=== PATIENT | male | born 1960 | race African-American/Black ===

== ENCOUNTER 2019-12-23 18:26 | Inpatient (IN) | payer MEDICAID, OTHER ==
[~2019-12-23] VITALS: Ht 167.6 cm; Wt 78.9 kg
[~2019-12-23 18:26] MED LIST: DOCUSATE; HYDROCODONE; METOPROLOL; WARFARIN
[2019-12-23] MEDS ORDERED: ONDANSETRON HCL 4MG/2ML INJ IV STA (20:07)
[2019-12-23 20:36] LABS: EOSINOPHILS % 0.8 % (0.0-5.0); HEMATOCRIT. 41.8 % (42.0-52.0); LYMPHOCYTES % 24.7 % (20.0-50.0); MEAN CORPUSCULAR HEMOGLOBIN 28.5 pg (28.0-32.0); MEAN CORPUSCULAR VOLUME 85.2 fL (80.0-94.0); MEAN PLATELET VOLUME 8.2 fl (7.4-10.4); MONOCYTES % 13.4 % (2.0-8.0); NEUTROPHILS % 60.1 % (40.0-76.0); PLATELET 158 x1000/uL (130-400); RED BLOOD CELL COUNT 4.91 mill/uL (4.7-6.1); RED CELL DISTRIBUTION WIDTH 13.5 % (11.6-14.6)
[2019-12-23 20:38] LABS: CHLORIDE 108 mEq/L (98-107)
[2019-12-23 20:43] LABS: ETHANOL BLOOD < 10 mg/dL
[2019-12-23 20:44] LABS: D-DIMER 0.68 mg/L FEU (<0.50); PARTIAL THROMBOPLASTIN TIME 24.7 sec (23.4-31.0); PROTHROMBIN TIME 9.8 sec (9.6-11.0)
[2019-12-23 20:46] LABS: LDL CHOLESTEROL 100 mg/dL (5-100)
[2019-12-23 20:47] LABS: CREATINE KINASE 267 IU/L (39-308)
[2019-12-23] MEDS ORDERED: HYDRALAZINE 20MG/ML VIAL IV ONE (21:15)
[2019-12-23 21:57] LABS: CLARITY URINE CLEAR (CLEAR); COLOR URINE YELLOW (YELLOW); KETONES URINE NEGATIVE (NEGATIVE); LEUKOCYTE ESTERASE URINE NEGATIVE (NEGATIVE); NITRITE URINE NEGATIVE (NEGATIVE); OCCULT BLOOD URINE NEGATIVE (NEGATIVE); PROTEIN URINE NEGATIVE (NEGATIVE); SPECIFIC GRAVITY URINE 1.015 (1.005-1.030); UROBILINOGEN URINE 0.2 E.U./dL (0.2-1.0)
[2019-12-23] MEDS ORDERED: IOHEXOL-350 100 ML BOTTLE ONE (22:10)
[2019-12-23] MEDS ORDERED: ATORVASTATIN CALCIUM 40MG TABLET PO SCH (22:15)
[2019-12-23 22:24] LABS: *AMPHETAMINES SCREEN URINE NEGATIVE (NEGATIVE); *BARBITURATES SCREEN URINE NEGATIVE (NEGATIVE); CANNABINOID URINE SCREEN NEGATIVE (NEGATIVE)
[2019-12-23 22:25] LABS: *BENZODIAZEPINES SCREEN URINE NEGATIVE (NEGATIVE); *COCAINE SCREEN URINE NEGATIVE (NEGATIVE); METHADONE URINE SCREEN NEGATIVE (NEGATIVE); OPIATES URINE SCREEN NEGATIVE (NEGATIVE); PHENCYCLIDINE URINE SCREEN NEGATIVE (NEGATIVE)
[2019-12-23] MEDS ORDERED: ONDANSETRON HCL 4MG/2ML INJ IV ONE (23:45)
[2019-12-23] MEDS ORDERED: MORPHINE SULFATE 4 MG/ML CPJ (NOT FOR IM USE) IV ONE (23:45)
[2019-12-24] MEDS ORDERED: ENOXAPARIN 80MG/0.8ML SYR SUBCUT ONE (01:00)
[2019-12-24] MEDS ORDERED: CLONIDINE 0.2MG TABLET PO ONE (01:00)
[2019-12-24] MEDS ORDERED: MORPHINE SULFATE 4 MG/ML CPJ (NOT FOR IM USE) IV ONE (05:15)
[2019-12-24 11:47] VITALS: BP 121/79
[2019-12-24 12:00] VITALS: BP 121/79
[2019-12-24] MEDS: HYDROCODONE/ACETAMINOPHEN 5/325MG TABLET PO PRN ×2 (15:39→20:54)
[2019-12-24 16:00] VITALS: BP 125/81
[2019-12-24] MEDS: ENOXAPARIN 80MG/0.8ML SYR SUBCUT SCH (17:40)
[2019-12-24 20:00] VITALS: BP 115/80
[2019-12-24] MEDS: AMLODIPINE 5MG TABLET PO SCH (20:55)
[2019-12-24] MEDS ORDERED: ATORVASTATIN CALCIUM 40MG TABLET PO SCH (21:00)
[2019-12-25] VITALS: BP 127/83
[2019-12-25 04:00] VITALS: BP 117/84
[2019-12-25] MEDS: ENOXAPARIN 80MG/0.8ML SYR SUBCUT SCH (05:46)
[2019-12-25] MEDS: HYDROCODONE/ACETAMINOPHEN 5/325MG TABLET PO PRN (05:47)
[2019-12-25 06:30] LABS: EOSINOPHILS % 1.7 % (0.0-5.0); HEMATOCRIT. 41.8 % (42.0-52.0); HEMOGLOBIN. 13.9 g/dL (14.0-18.0); LYMPHOCYTES % 21.7 % (20.0-50.0); MEAN CORPUSCULAR HEMOGLOBIN 28.4 pg (28.0-32.0); MEAN CORPUSCULAR VOLUME 85.9 fL (80.0-94.0); MEAN PLATELET VOLUME 8.5 fl (7.4-10.4); NEUTROPHILS % 62.1 % (40.0-76.0); PLATELET 152 x1000/uL (130-400); RED BLOOD CELL COUNT 4.87 mill/uL (4.7-6.1); RED CELL DISTRIBUTION WIDTH 13.3 % (11.6-14.6)
[2019-12-25 06:31] LABS: BASOPHILS % 0.5 % (0.0-2.0)
[2019-12-25 07:30] LABS: CHLORIDE 106 mEq/L (98-107)
[2019-12-25 08:00] VITALS: BP 119/80
[2019-12-25] MEDS: AMLODIPINE 5MG TABLET PO SCH (08:46)
[2019-12-25] MEDS ORDERED: ENOXAPARIN 40MG/0.4ML SYR SUBCUT SCH (09:00)
[2019-12-25 12:00] VITALS: BP 129/88
[2019-12-25 15:24] VITALS: BP 135/86
[2019-12-25 16:00] VITALS: BP 135/86
== END 2019-12-25 18:30 | disposition home or self-care (01) | DRG 48 ==
LOC: ER 18:26 → 5WST 18:27 → UNDOADMIN 18:27 → 5WST 22:08 → EDBEDREQSVC 22:13 → EDBEDREQ 22:13 → ENRESERV 12-24 07:42 → 5WST 12-24 11:18
PROVIDERS: ADMIT Internal Medicine; ATTEND Internal Medicine
DX: G90.8 Other disorders of autonomic nervous system (principal); I82.411 Acute embolism and thrombosis of right femoral vein; E87.8 Other disorders of electrolyte and fluid balance, not elsewhere classified; E78.5 Hyperlipidemia, unspecified; F17.210 Nicotine dependence, cigarettes, uncomplicated; I10 Essential (primary) hypertension; Z82.3 Family history of stroke; Z71.6 Tobacco abuse counseling; Z79.899 Other long term (current) drug therapy; Z79.01 Long term (current) use of anticoagulants
CPT/HCPCS: 36415; 70496; 70551; 71045; 80048; 80053; 80061; 80305; 80320; 81003; 82550; 82962; 83721; 83880; 84443; 84484; 85025; 85379; 92610; 93005; 93970; 96372; 96374; 96375; 96376; 97162; 97166; 97535; 99285; J0360; J1650; J2270; J2405; Q9967; G0480

== ENCOUNTER 2020-01-06 00:19 | Inpatient (IN) | payer MEDICAID, OTHER ==
[~2020-01-06] VITALS: Ht 165.1 cm; Wt 87.1 kg
[~2020-01-06 00:19] MED LIST changes: -METOPROLOL
[2020-01-06 02:07] LABS: HEMATOCRIT. 41.5 % (42.0-52.0); HEMOGLOBIN. 14.1 g/dL (14.0-18.0); MEAN CORPUSCULAR HEMOGLOBIN 28.8 pg (28.0-32.0); MEAN CORPUSCULAR VOLUME 84.9 fL (80.0-94.0); MEAN PLATELET VOLUME 7.8 fl (7.4-10.4); PLATELET 192 x1000/uL (130-400); RED BLOOD CELL COUNT 4.89 mill/uL (4.7-6.1); RED CELL DISTRIBUTION WIDTH 13.4 % (11.6-14.6)
[2020-01-06 02:12] LABS: CHLORIDE 105 mEq/L (98-107)
[2020-01-06 02:14] LABS: PARTIAL THROMBOPLASTIN TIME 26.5 sec (23.4-31.0); PROTHROMBIN TIME 10.1 sec (9.6-11.0)
[2020-01-06] MEDS ORDERED: ENOXAPARIN 80MG/0.8ML SYR SUBCUT ONE (03:00)
[2020-01-06] MEDS ORDERED: MORPHINE SULFATE 4 MG/ML CPJ (NOT FOR IM USE) IV ONE (03:30)
[2020-01-06] MEDS ORDERED: ONDANSETRON HCL 4MG/2ML INJ IV ONE (03:30)
[2020-01-06] MEDS ORDERED: HYDROCHLOROTHIAZIDE 25MG TABLET PO ONE (03:45)
[2020-01-06 04:32] LABS: CLARITY URINE CLEAR (CLEAR); COLOR URINE YELLOW (YELLOW); KETONES URINE NEGATIVE (NEGATIVE); LEUKOCYTE ESTERASE URINE NEGATIVE (NEGATIVE); NITRITE URINE NEGATIVE (NEGATIVE); OCCULT BLOOD URINE NEGATIVE (NEGATIVE); PH URINE 5.5 (4.5-8.0); PROTEIN URINE NEGATIVE (NEGATIVE); SPECIFIC GRAVITY URINE 1.015 (1.005-1.030); UROBILINOGEN URINE 0.2 E.U./dL (0.2-1.0)
[2020-01-06] MEDS ORDERED: MAGNESIUM/ALUMINUM HYDROXIDE/SIMETHICONE 30ML UDC PO ONE (05:00)
[2020-01-06] MEDS ORDERED: FAMOTIDINE 20MG/2ML VIAL IV ONE (05:00)
[2020-01-06 05:09] LABS: PLATELET ESTIMATE NORMAL
[2020-01-06] MEDS ORDERED: ACETAMINOPHEN 325MG TABLET PO PRN (07:45)
[2020-01-06] MEDS ORDERED: MAGNESIUM/ALUMINUM HYDROXIDE/SIMETHICONE 30ML UDC PO PRN (07:45)
[2020-01-06] MEDS ORDERED: DOCUSATE SODIUM 100MG CAPSULE PO PRN (07:45)
[2020-01-06] MEDS ORDERED: LORAZEPAM 2MG/ML CPJ IV PRN (07:45)
[2020-01-06] MEDS ORDERED: GUAIFENESIN 200MG/10ML SUGAR FREE UDC PO PRN (07:45)
[2020-01-06] MEDS ORDERED: CLONIDINE 0.1MG TABLET PO PRN (07:45)
[2020-01-06] MEDS ORDERED: IPRATROPIUM/ALBUTEROL 0.5-3(2.5)MG/3ML NEB HHN PRN (07:45)
[2020-01-06] MEDS ORDERED: ONDANSETRON HCL 4MG/2ML INJ IV PRN (07:45)
[2020-01-06] MEDS ORDERED: DIPHENHYDRAMINE 50MG/ML VIAL IV PRN (07:45)
[2020-01-06] MEDS ORDERED: NA PHOS,M-B/NA PHOS,DI-BA ENEMA 118ML PR PRN (07:45)
[2020-01-06] MEDS ORDERED: MORPHINE SULFATE 2 MG/ML CPJ (NOT FOR IM USE) IV PRN (07:45)
[2020-01-06 08:00] VITALS: BP 174/113
[2020-01-06] MEDS: HYDROCODONE/ACETAMINOPHEN 5/325MG TABLET PO PRN ×2 (08:06→17:34)
[2020-01-06 08:15] VITALS: BP 146/95
[2020-01-06] MEDS ORDERED: LISI30TA36 MT (09:59)
[2020-01-06] MEDS ORDERED: APIX5TAB MT (09:59)
[2020-01-06 12:00] VITALS: BP 170/100
[2020-01-06 15:02] LABS: CHLORIDE 101 mEq/L (98-107)
[2020-01-06 16:00] VITALS: BP 103/103
[2020-01-06] MEDS: ENOXAPARIN 80MG/0.8ML SYR SUBCUT SCH (17:33)
[2020-01-06 20:00] VITALS: BP 125/84
[2020-01-06] MEDS: LISINOPRIL 20MG TABLET PO SCH (21:29)
[2020-01-07] VITALS: BP 133/90
[2020-01-07 04:00] VITALS: BP 138/100
[2020-01-07] MEDS: ENOXAPARIN 80MG/0.8ML SYR SUBCUT SCH ×2 (04:16→17:17)
[2020-01-07 07:07] LABS: BASOPHILS % 0.7 % (0.0-2.0); EOSINOPHILS % 1.6 % (0.0-5.0); HEMOGLOBIN. 14.5 g/dL (14.0-18.0); LYMPHOCYTES % 20.2 % (20.0-50.0); MEAN CORPUSCULAR HEMOGLOBIN 28.1 pg (28.0-32.0); MEAN CORPUSCULAR VOLUME 85.5 fL (80.0-94.0); MEAN PLATELET VOLUME 8.4 fl (7.4-10.4); NEUTROPHILS % 63.5 % (40.0-76.0); PLATELET 194 x1000/uL (130-400); RED BLOOD CELL COUNT 5.15 mill/uL (4.7-6.1); RED CELL DISTRIBUTION WIDTH 13.2 % (11.6-14.6)
[2020-01-07 08:00] VITALS: BP 110/83
[2020-01-07] MEDS: HYDROCODONE/ACETAMINOPHEN 5/325MG TABLET PO PRN ×2 (08:08→14:20)
[2020-01-07 08:20] LABS: CHLORIDE 101 mEq/L (98-107)
[2020-01-07 08:33] LABS: LDL CHOLESTEROL 63 mg/dL (5-100)
[2020-01-07 08:34] LABS: CREATINE KINASE 162 IU/L (39-308)
[2020-01-07 08:36] LABS: HDL CHOLESTEROL 68 mg/dL (40-59); T4 FREE 1.02 ng/dL (0.76-1.46)
[2020-01-07] MEDS: LISINOPRIL 20MG TABLET PO SCH (08:36)
[2020-01-07 12:00] VITALS: BP 139/95
[2020-01-07 16:00] VITALS: BP_SYST 123; BP_SYST 96; BP_DIAS 62; BP_DIAS 89
[2020-01-07 20:00] VITALS: BP 116/81
[2020-01-08] VITALS: BP 114/77
[2020-01-08] MEDS: HYDROCODONE/ACETAMINOPHEN 5/325MG TABLET PO PRN (01:23)
[2020-01-08 04:00] VITALS: BP 115/81
[2020-01-08] MEDS: ENOXAPARIN 80MG/0.8ML SYR SUBCUT SCH (04:48)
[2020-01-08 08:00] VITALS: BP 108/79
[2020-01-08] MEDS: LISINOPRIL 20MG TABLET PO SCH (09:04)
[2020-01-08 10:41] VITALS: BP 108/79
[2020-01-08 12:00] VITALS: BP 124/95
[2020-01-15] MEDS ORDERED: APIX5TAB MT (12:37)
[2020-04-17] MEDS ORDERED: AMLO10TA80 PO (13:41)
== END 2020-01-08 14:47 | disposition home or self-care (01) | DRG 197 ==
LOC: ER 00:19 → 6EST 03:21 → EDBEDREQTM 03:24 → EDBEDREQSVC 03:24 → EDBEDREQ 03:24 → ENRESERV 07:48
PROVIDERS: ADMIT Internal Medicine; ATTEND Internal Medicine
DX: I82.401 Acute embolism and thrombosis of unspecified deep veins of right lower extremity (principal); I10 Essential (primary) hypertension; R29.6 Repeated falls; Z86.718 Personal history of other venous thrombosis and embolism; Z91.14 Patient's other noncompliance with medication regimen; Z86.73 Personal history of transient ischemic attack (TIA), and cerebral infarction without residual deficits; Z79.899 Other long term (current) drug therapy; Z79.01 Long term (current) use of anticoagulants
CPT/HCPCS: 36415; 71045; 73590; 80048; 80053; 80061; 81003; 82550; 82553; 83036; 83880; 84439; 84443; 84484; 85025; 85379; 93005; 93306; 93970; 99285; J1650; J2270; J2405; J3490

== ENCOUNTER 2020-01-13 23:57 | Inpatient (IN) | payer MEDICAID, OTHER ==
[~2020-01-13] VITALS: Ht 167.6 cm; Wt 81.6 kg
[~2020-01-13 23:57] MED LIST changes: +APIX5TAB MT; +LISI30TA36 MT
[2020-01-14 08:22] LABS: BASOPHILS % 0.8 % (0.0-2.0); EOSINOPHILS % 0.6 % (0.0-5.0); HEMATOCRIT. 40.5 % (42.0-52.0); HEMOGLOBIN. 13.6 g/dL (14.0-18.0); LYMPHOCYTES % 18.6 % (20.0-50.0); MEAN CORPUSCULAR HEMOGLOBIN 28.7 pg (28.0-32.0); MEAN CORPUSCULAR VOLUME 85.2 fL (80.0-94.0); MEAN PLATELET VOLUME 7.9 fl (7.4-10.4); MONOCYTES % 11.6 % (2.0-8.0); NEUTROPHILS % 68.4 % (40.0-76.0); PLATELET 159 x1000/uL (130-400); RED BLOOD CELL COUNT 4.75 mill/uL (4.7-6.1); RED CELL DISTRIBUTION WIDTH 13.4 % (11.6-14.6)
[2020-01-14 08:27] LABS: CHLORIDE 108 mEq/L (98-107)
[2020-01-14] MEDS ORDERED: HYDRALAZINE 20MG/ML VIAL IV ONE (10:00)
[2020-01-14] MEDS ORDERED: ASPIRIN 325MG EC TABLET PO ONE (10:15)
[2020-01-14] MEDS ORDERED: NITROGLYCERIN 0.4MG TABLET SL SL PRN (11:30)
[2020-01-14] MEDS ORDERED: HYDRALAZINE 20MG/ML VIAL IV PRN (11:30)
[2020-01-14] MEDS ORDERED: ONDANSETRON HCL 4MG/2ML INJ IV PRN (11:30)
[2020-01-14] MEDS ORDERED: ACETAMINOPHEN 325MG TABLET PO PRN (11:30)
[2020-01-14] MEDS: AMLODIPINE 5MG TABLET PO SCH (12:30)
[2020-01-14] MEDS ORDERED: ATORVASTATIN CALCIUM 40MG TABLET PO NR (12:31)
[2020-01-14] MEDS: APIXABAN 5 MG TABLET PO SCH (12:35)
[2020-01-14] MEDS ORDERED: IOHEXOL-350 100 ML BOTTLE ONE (12:53)
[2020-01-14 20:20] VITALS: BP 156/108
[2020-01-14 20:30] VITALS: BP 156/108
[2020-01-14] MEDS: CLONIDINE 0.1MG TABLET PO PRN (20:50)
[2020-01-14] MEDS ORDERED: HEPARIN 5000 UNITS/ML VIAL SUBCUT SCH (21:00)
[2020-01-14 21:40] VITALS: BP 136/92
[2020-01-14] MEDS ORDERED: HYDROCODONE/ACETAMINOPHEN 5/325MG TABLET PO PRN (22:30)
[2020-01-14] MEDS ORDERED: TRAMADOL 50MG TABLET PO PRN (22:30)
[2020-01-15] VITALS: BP 112/80
[2020-01-15 04:00] VITALS: BP 126/90
[2020-01-15 07:10] LABS: BASOPHILS % 0.7 % (0.0-2.0); EOSINOPHILS % 1.2 % (0.0-5.0); HEMATOCRIT. 40.2 % (42.0-52.0); HEMOGLOBIN. 13.6 g/dL (14.0-18.0); LYMPHOCYTES % 20.1 % (20.0-50.0); MEAN CORPUSCULAR HEMOGLOBIN 28.7 pg (28.0-32.0); MEAN CORPUSCULAR VOLUME 85.1 fL (80.0-94.0); MEAN PLATELET VOLUME 8.4 fl (7.4-10.4); MONOCYTES % 13.2 % (2.0-8.0); NEUTROPHILS % 64.8 % (40.0-76.0); PLATELET 149 x1000/uL (130-400); RED BLOOD CELL COUNT 4.72 mill/uL (4.7-6.1); RED CELL DISTRIBUTION WIDTH 13.1 % (11.6-14.6)
[2020-01-15 07:23] LABS: CHLORIDE 107 mEq/L (98-107)
[2020-01-15 07:36] LABS: LDL CHOLESTEROL 83 mg/dL (5-100)
[2020-01-15 07:38] LABS: TOTAL IRON BINDING CAPACITY 232 ug/dL (250-450)
[2020-01-15 07:39] LABS: HDL CHOLESTEROL 65 mg/dL (40-59)
[2020-01-15 07:43] LABS: VITAMIN B12 SERUM 274 pg/mL (211-911)
[2020-01-15 08:00] VITALS: BP 151/99
[2020-01-15] MEDS: APIXABAN 5 MG TABLET PO SCH ×2 (09:22→17:39)
[2020-01-15] MEDS: AMLODIPINE 5MG TABLET PO SCH (09:22)
[2020-01-15 12:00] VITALS: BP 126/75
[2020-01-15] MEDS ORDERED: APIX5TAB MT (12:37)
[2020-01-15 16:00] VITALS: BP 135/94
[2020-01-15 16:28] LABS: METHADONE URINE SCREEN NEGATIVE (NEGATIVE)
[2020-01-15 16:29] LABS: OPIATES URINE SCREEN PRESUMTIVE POSITIVE (NEGATIVE); PHENCYCLIDINE URINE SCREEN NEGATIVE (NEGATIVE)
[2020-01-15 16:30] VITALS: BP 135/94
[2020-01-15 16:30] LABS: *AMPHETAMINES SCREEN URINE NEGATIVE (NEGATIVE); *BARBITURATES SCREEN URINE NEGATIVE (NEGATIVE); *BENZODIAZEPINES SCREEN URINE NEGATIVE (NEGATIVE); *COCAINE SCREEN URINE NEGATIVE (NEGATIVE); CANNABINOID URINE SCREEN NEGATIVE (NEGATIVE)
[2020-01-15] MEDS: CLONIDINE 0.1MG TABLET PO PRN (18:34)
== END 2020-01-15 18:40 | disposition home or self-care (01) | DRG 145 ==
LOC: ER 23:57 → UNDOADMIN 01-14 06:54 → 6EST 01-14 06:54 → ENRESERV 01-14 18:08 → EDBEDREQ 01-14 19:49 → 5WST 01-14 20:22
PROVIDERS: ADMIT Internal Medicine; ATTEND Internal Medicine
DX: R07.81 Pleurodynia (principal); D72.821 Monocytosis (symptomatic); I10 Essential (primary) hypertension; I16.0 Hypertensive urgency; R94.6 Abnormal results of thyroid function studies; R07.89 Other chest pain; R91.8 Other nonspecific abnormal finding of lung field; R09.1 Pleurisy; Z86.718 Personal history of other venous thrombosis and embolism; Z86.73 Personal history of transient ischemic attack (TIA), and cerebral infarction without residual deficits; Z79.01 Long term (current) use of anticoagulants; Z88.6 Allergy status to analgesic agent
CPT/HCPCS: 36415; 71045; 71275; 78582; 80053; 80061; 80305; 82607; 83036; 83540; 83550; 83735; 83880; 84443; 84484; 85025; 87804; 93005; 93971; 96372; 99285; A9558; J0360; Q9967

== ENCOUNTER 2020-03-22 08:42 | Emergency (ER) | payer MEDICAID ==
[~2020-03-22] VITALS: Ht 165.1 cm; Wt 69.0 kg
[~2020-03-22 08:42] MED LIST changes: -WARFARIN
[2020-03-22 08:48] VITALS: BP 116/76
[2020-04-17] MEDS ORDERED: AMLO10TA80 PO (13:41)
== END 2020-03-22 10:08 | disposition home or self-care (01) ==
LOC: ER 08:42
DX: I82.4Z9 Acute embolism and thrombosis of unspecified deep veins of unspecified distal lower extremity (principal); Z76.0 Encounter for issue of repeat prescription; I10 Essential (primary) hypertension
CPT/HCPCS: 99282

== ENCOUNTER 2020-04-14 20:09 | Inpatient (IN) | payer MEDICAID ==
[~2020-04-14] VITALS: Ht 172.7 cm; Wt 67.6 kg
[2020-04-14 21:12] LABS: BASOPHILS % 0.7 % (0.0-2.0); EOSINOPHILS % 0.8 % (0.0-5.0); HEMATOCRIT. 38.9 % (42.0-52.0); LYMPHOCYTES % 20.8 % (20.0-50.0); MEAN CORPUSCULAR HEMOGLOBIN 28.7 pg (28.0-32.0); MEAN CORPUSCULAR VOLUME 85.4 fL (80.0-94.0); MEAN PLATELET VOLUME 8.1 fl (7.4-10.4); MONOCYTES % 12.9 % (2.0-8.0); NEUTROPHILS % 64.8 % (40.0-76.0); PLATELET 140 x1000/uL (130-400); RED BLOOD CELL COUNT 4.55 mill/uL (4.7-6.1)
[2020-04-14 21:14] LABS: CHLORIDE 110 mEq/L (98-107)
[2020-04-14] MEDS ORDERED: CEFTRIAXONE 1 G PREMIX 50 ML IV NR (22:30)
[2020-04-14] MEDS ORDERED: AZITHROMYCIN 500 MG in DEXT 5% WATER 250 ML IV SCH (22:30)
[2020-04-14] MEDS ORDERED: NITROGLYCERIN 0.4MG TABLET SL SL PRN (22:45)
[2020-04-14] MEDS ORDERED: ONDANSETRON HCL 4MG/2ML INJ IV PRN (22:45)
[2020-04-14] MEDS ORDERED: ATORVASTATIN CALCIUM 40MG TABLET PO NR (22:45)
[2020-04-14] MEDS ORDERED: AMLODIPINE 10MG TABLET PO SCH (23:00)
[2020-04-15 00:05] LABS: *AMPHETAMINES SCREEN URINE NEGATIVE (NEGATIVE); *BARBITURATES SCREEN URINE NEGATIVE (NEGATIVE); *BENZODIAZEPINES SCREEN URINE NEGATIVE (NEGATIVE); *COCAINE SCREEN URINE NEGATIVE (NEGATIVE); METHADONE URINE SCREEN NEGATIVE (NEGATIVE); OPIATES URINE SCREEN NEGATIVE (NEGATIVE)
[2020-04-15 00:06] LABS: CANNABINOID URINE SCREEN NEGATIVE (NEGATIVE); PHENCYCLIDINE URINE SCREEN NEGATIVE (NEGATIVE)
[2020-04-15] MEDS: ACETAMINOPHEN 325MG TABLET PO PRN ×3 (01:19→16:23)
[2020-04-15] MEDS: CLONIDINE 0.1MG TABLET PO PRN ×2 (01:19→16:23)
[2020-04-15 09:22] LABS: CHLORIDE 104 mEq/L (98-107)
[2020-04-15 09:28] LABS: BASOPHILS % 0.3 % (0.0-2.0); EOSINOPHILS % 0.8 % (0.0-5.0); HEMATOCRIT. 40.8 % (42.0-52.0); HEMOGLOBIN. 13.8 g/dL (14.0-18.0); LYMPHOCYTES % 14.1 % (20.0-50.0); MEAN CORPUSCULAR HEMOGLOBIN 28.7 pg (28.0-32.0); MEAN CORPUSCULAR VOLUME 85.2 fL (80.0-94.0); MEAN PLATELET VOLUME 8.1 fl (7.4-10.4); MONOCYTES % 12.2 % (2.0-8.0); NEUTROPHILS % 72.6 % (40.0-76.0); PLATELET 139 x1000/uL (130-400); RED BLOOD CELL COUNT 4.79 mill/uL (4.7-6.1); RED CELL DISTRIBUTION WIDTH 14.7 % (11.6-14.6)
[2020-04-15 09:31] LABS: LDL CHOLESTEROL 82 mg/dL (5-100)
[2020-04-15 09:32] LABS: HDL CHOLESTEROL 80 mg/dL (40-59)
[2020-04-15] MEDS: AMLODIPINE 10MG TABLET PO SCH (09:48)
[2020-04-15] MEDS: HEPARIN 5000 UNITS/ML VIAL SUBCUT SCH ×2 (09:50→21:37)
[2020-04-15 10:30] VITALS: BP 114/80
[2020-04-15] MEDS ORDERED: HYDRALAZINE 20MG/ML VIAL IV PRN (11:00)
[2020-04-15 12:00] VITALS: BP 166/105
[2020-04-15 16:00] VITALS: BP 146/100
[2020-04-15 20:00] VITALS: BP 122/87
[2020-04-16] VITALS: BP 138/90
[2020-04-16 04:00] VITALS: BP 162/107
[2020-04-16] MEDS: CLONIDINE 0.1MG TABLET PO PRN (04:10)
[2020-04-16 07:15] LABS: BASOPHILS % 0.4 % (0.0-2.0); EOSINOPHILS % 0.8 % (0.0-5.0); HEMATOCRIT. 41.2 % (42.0-52.0); HEMOGLOBIN. 13.9 g/dL (14.0-18.0); LYMPHOCYTES % 16.1 % (20.0-50.0); MEAN CORPUSCULAR HEMOGLOBIN 28.9 pg (28.0-32.0); MEAN CORPUSCULAR VOLUME 85.3 fL (80.0-94.0); MEAN PLATELET VOLUME 8.2 fl (7.4-10.4); MONOCYTES % 12.9 % (2.0-8.0); NEUTROPHILS % 69.8 % (40.0-76.0); PLATELET 132 x1000/uL (130-400); RED BLOOD CELL COUNT 4.83 mill/uL (4.7-6.1); RED CELL DISTRIBUTION WIDTH 14.3 % (11.6-14.6)
[2020-04-16 07:26] LABS: CHLORIDE 105 mEq/L (98-107)
[2020-04-16 07:40] LABS: TOTAL IRON BINDING CAPACITY 260 ug/dL (250-450)
[2020-04-16 07:52] LABS: VITAMIN B12 SERUM 343 pg/mL (211-911)
[2020-04-16 08:00] VITALS: BP 147/94
[2020-04-16] MEDS: AMLODIPINE 10MG TABLET PO SCH (09:34)
[2020-04-16] MEDS: HEPARIN 5000 UNITS/ML VIAL SUBCUT SCH ×2 (09:34→21:38)
[2020-04-16 12:00] VITALS: BP 137/90
[2020-04-16 16:00] VITALS: BP 148/96
[2020-04-16 20:00] VITALS: BP 136/94
[2020-04-16] MEDS: ACETAMINOPHEN 325MG TABLET PO PRN (23:53)
[2020-04-17] VITALS (7 sets, daily range): BP systolic 128–159; BP diastolic 72–109
[2020-04-17 06:58] LABS: BASOPHILS % 0.3 % (0.0-2.0); EOSINOPHILS % 0.4 % (0.0-5.0); HEMATOCRIT. 42.4 % (42.0-52.0); HEMOGLOBIN. 14.6 g/dL (14.0-18.0); MEAN CORPUSCULAR HEMOGLOBIN 29.4 pg (28.0-32.0); MEAN CORPUSCULAR VOLUME 85.1 fL (80.0-94.0); MEAN PLATELET VOLUME 8.5 fl (7.4-10.4); MONOCYTES % 11.4 % (2.0-8.0); NEUTROPHILS % 72.9 % (40.0-76.0); PLATELET 139 x1000/uL (130-400); RED BLOOD CELL COUNT 4.98 mill/uL (4.7-6.1); RED CELL DISTRIBUTION WIDTH 14.1 % (11.6-14.6)
[2020-04-17] MEDS ORDERED: REGADENOSON 0.4 MG/5 ML IV NR (07:00)
[2020-04-17 07:11] LABS: CHLORIDE 104 mEq/L (98-107)
[2020-04-17 07:20] LABS: VITAMIN B12 SERUM 424 pg/mL (211-911)
[2020-04-17] MEDS ORDERED: REGADENOSON 0.4 MG/5 ML IV ONE (11:20)
[2020-04-17] MEDS: AMLODIPINE 10MG TABLET PO SCH (12:55)
[2020-04-17] MEDS: HEPARIN 5000 UNITS/ML VIAL SUBCUT SCH (12:56)
[2020-04-17] MEDS ORDERED: AMLO10TA80 PO (13:41)
== END 2020-04-17 20:40 | disposition home or self-care (01) | DRG 199 ==
LOC: ER 20:09 → EDBEDREQ 20:53 → 7EST 22:22 → EDBEDREQTM 22:23 → EDBEDREQ 22:23 → ENRESERV 04-15 07:42 → 7EST 04-15 10:34 → 6WST 04-16 17:51
PROVIDERS: ADMIT Internal Medicine; ATTEND Internal Medicine
DX: I16.1 Hypertensive emergency (principal); E83.51 Hypocalcemia; M94.0 Chondrocostal junction syndrome [Tietze]; I10 Essential (primary) hypertension; M79.604 Pain in right leg; R00.1 Bradycardia, unspecified; Z20.828 Contact with and (suspected) exposure to other viral communicable diseases; Z86.718 Personal history of other venous thrombosis and embolism; Z88.6 Allergy status to analgesic agent; Z79.01 Long term (current) use of anticoagulants; Z79.899 Other long term (current) drug therapy
CPT/HCPCS: 36415; 71045; 78452; 80053; 80061; 80305; 82607; 83036; 83540; 83550; 83605; 83735; 83880; 84439; 84443; 84484; 85025; 93005; 93017; 93306; 93970; 99285; A9500; J0456; J0696; J1644; J2785; J7060; U0003-CS

== ENCOUNTER 2020-06-10 00:32 | Inpatient (IN) | payer MEDICAID ==
[~2020-06-10] VITALS: Ht 165.1 cm; Wt 78.5 kg
[2020-06-10] VITALS (8 sets, daily range): BP systolic 122–156; BP diastolic 87–115
[~2020-06-10 00:32] MED LIST changes: +AMLO10TA80 PO; -DOCUSATE; -HYDROCODONE
[2020-06-10] MEDS ORDERED: ONDANSETRON HCL 4MG/2ML INJ IV STA (01:10)
[2020-06-10] MEDS ORDERED: MORPHINE SULFATE 4 MG/ML CPJ (NOT FOR IM USE) IV STA (01:10)
[2020-06-10] MEDS ORDERED: ENALAPRIL 1.25MG/ML VIAL 1ML IV ONE (01:15)
[2020-06-10 01:57] LABS: BASOPHILS % 0.9 % (0.0-2.0); EOSINOPHILS % 0.7 % (0.0-5.0); HEMATOCRIT. 41.3 % (42.0-52.0); HEMOGLOBIN. 14.1 g/dL (14.0-18.0); LYMPHOCYTES % 19.4 % (20.0-50.0); MEAN CORPUSCULAR HEMOGLOBIN 29.6 pg (28.0-32.0); MEAN CORPUSCULAR VOLUME 87.1 fL (80.0-94.0); MEAN PLATELET VOLUME 8.2 fl (7.4-10.4); MONOCYTES % 13.6 % (2.0-8.0); NEUTROPHILS % 65.4 % (40.0-76.0); PLATELET 169 x1000/uL (130-400); RED BLOOD CELL COUNT 4.75 mill/uL (4.7-6.1); RED CELL DISTRIBUTION WIDTH 14.9 % (11.6-14.6)
[2020-06-10 02:00] LABS: CHLORIDE 108 mEq/L (98-107)
[2020-06-10] MEDS ORDERED: ENOXAPARIN 80MG/0.8ML SYR SUBCUT ONE (03:30)
[2020-06-10] MEDS ORDERED: HYDRALAZINE 20MG/ML VIAL IV ONE (03:30)
[2020-06-10] MEDS ORDERED: LORAZEPAM 0.5MG TABLET PO PRN (07:15)
[2020-06-10] MEDS ORDERED: GUAIFENESIN 200MG/10ML SUGAR FREE UDC PO PRN (07:15)
[2020-06-10] MEDS ORDERED: ZOLPIDEM TARTRATE 5MG TABLET PO PRN (07:15)
[2020-06-10] MEDS ORDERED: DOCUSATE SODIUM 100MG CAPSULE PO PRN (07:15)
[2020-06-10] MEDS ORDERED: ACETAMINOPHEN 325MG TABLET PO PRN ×2 (07:15)
[2020-06-10] MEDS ORDERED: ONDANSETRON HCL 4MG/2ML INJ IV PRN (07:15)
[2020-06-10] MEDS ORDERED: CLONIDINE 0.1MG TABLET PO PRN (07:15)
[2020-06-10] MEDS ORDERED: MAGNESIUM/ALUMINUM HYDROXIDE/SIMETHICONE 30ML UDC PO PRN (07:15)
[2020-06-10] MEDS ORDERED: IPRATROPIUM/ALBUTEROL 0.5-3(2.5)MG/3ML NEB ORI PRN (07:15)
[2020-06-10] MEDS ORDERED: NITROGLYCERIN 0.4MG TABLET SL SL PRN (07:15)
[2020-06-10] MEDS: TRAMADOL 50MG TABLET PO PRN ×2 (08:19→22:00)
[2020-06-10 08:28] LABS: *AMPHETAMINES SCREEN URINE NEGATIVE (NEGATIVE); *BARBITURATES SCREEN URINE NEGATIVE (NEGATIVE); *BENZODIAZEPINES SCREEN URINE NEGATIVE (NEGATIVE)
[2020-06-10 08:29] LABS: *COCAINE SCREEN URINE NEGATIVE (NEGATIVE); CANNABINOID URINE SCREEN NEGATIVE (NEGATIVE); METHADONE URINE SCREEN NEGATIVE (NEGATIVE); OPIATES URINE SCREEN PRESUMTIVE POSITIVE (NEGATIVE); PHENCYCLIDINE URINE SCREEN NEGATIVE (NEGATIVE)
[2020-06-10] MEDS: AMLODIPINE 10MG TABLET PO SCH (08:38)
[2020-06-10] MEDS: LISINOPRIL 20MG TABLET PO SCH ×2 (08:39→20:59)
[2020-06-10] MEDS: FAMOTIDINE 20MG TABLET PO SCH ×2 (08:39→20:59)
[2020-06-10] MEDS ORDERED: PNEUMOCOCCAL 23-VAL P-SAC VAC 0.5 ML IM ONE (10:30)
[2020-06-10] MEDS: HYDRALAZINE HCL 50MG TABLET PO SCH ×2 (14:37→21:01)
[2020-06-10 16:35] LABS: CREATINE KINASE 196 IU/L (39-308)
[2020-06-10 16:36] LABS: CREATINE KINASE MB FRACTION 1.6 ng/mL (0.5-3.6)
[2020-06-10] MEDS: APIXABAN 5 MG TABLET PO SCH (18:09)
[2020-06-10 23:38] LABS: CREATINE KINASE 215 IU/L (39-308)
[2020-06-10 23:40] LABS: CREATINE KINASE MB FRACTION 1.9 ng/mL (0.5-3.6)
[2020-06-11] VITALS (8 sets, daily range): BP systolic 116–145; BP diastolic 81–99
[2020-06-11] MEDS: APIXABAN 5 MG TABLET PO SCH (06:10)
[2020-06-11] MEDS: HYDRALAZINE HCL 50MG TABLET PO SCH (06:10)
[2020-06-11] MEDS: AMLODIPINE 10MG TABLET PO SCH (08:52)
[2020-06-11] MEDS: TRAMADOL 50MG TABLET PO PRN (08:53)
[2020-06-11] MEDS: FAMOTIDINE 20MG TABLET PO SCH (08:53)
[2020-06-11] MEDS: LISINOPRIL 20MG TABLET PO SCH (08:53)
== END 2020-06-11 13:08 | disposition home or self-care (01) | DRG 199 ==
LOC: ER 00:32 → EDBEDREQTM 04:41 → EDBEDREQSVC 04:41 → EDBEDREQ 04:41 → ENRESERV 07:27 → 3WST 10:12
PROVIDERS: ADMIT Internal Medicine; ATTEND Internal Medicine
DX: I16.1 Hypertensive emergency (principal); I82.431 Acute embolism and thrombosis of right popliteal vein; I10 Essential (primary) hypertension; Z88.6 Allergy status to analgesic agent; Z91.14 Patient's other noncompliance with medication regimen; Z86.73 Personal history of transient ischemic attack (TIA), and cerebral infarction without residual deficits; Z89.511 Acquired absence of right leg below knee
CPT/HCPCS: 36415; 71045; 73590; 73600; 80053; 80305; 82550; 82553; 83036; 84484; 85025; 90732; 93005; 93970; 99291; J0360; J1650; J2270; J2405; J3490